=== PATIENT | male | born 1950 | race Caucasian/White ===

== ENCOUNTER → 2021-02-25 | Outpatient (CLI) | payer MEDICARE, OTHER ==
[2021-02-25 10:41] LABS: HCT 37.9 % (39.0-53.0); HGB 12.9 gm/dL (13.0-17.5); MCH 37.6 pg (25.0-35.0); MCHC 34.1 g/dL (31.0-37.0); MCV 110.4 fL (80.0-100.0); Macrocytosis Marked; Mean Platelet Volume 7.6; RBC 3.43 m/uL (4.30-5.90); RDW 13.1 % (11.5-15.5); WBC 4.2 k/uL (3.8-10.6)
[2021-02-25 11:16] LABS: Platelet Count 97 k/uL (150-450)
[2021-02-25 11:18] LABS: Eosinophils # (M) 0.13 k/uL (0-0.7); Lymphocytes # (M) 1.22 k/uL (1.0-4.8); Monocytes # (M) 0.46 k/uL (0-1.0); Neutrophils # (M) 2.39 k/uL (1.3-7.7); Neutrophils % (M) 57 %; Nucleated Red Blood Cells 0 /100 WBC (0-0); Total Cells Counted 100
[2021-02-25 17:19] LABS: African American GFR (CKD) 78.4 (60.0-200.0); Albumin 3.9 g/dL (3.80-4.90); Albumin/Globulin Ratio 1.44 (1.60-3.17); Anion Gap 9.1 mmol/L (4.00-12.00); BUN/Creat Ratio 15.45 Ratio (12.00-20.00); Calcium 9.8 mg/dL (8.7-10.3); Carbon Dioxide 22.9 mmol/L (21.6-31.8); Globulin 2.7 g/dL (1.6-3.3); Non-African American GFR(CKD) 67.7 (60.0-200.0); Potassium 4.2 mmol/L (3.5-5.5); Total Bilirubin 0.6 mg/dL (0.2-1.2); Total Protein 6.6 g/dL (6.2-8.2)
== END | disposition home or self-care (01) ==
LOC: LABMAIN 09:52
PROVIDERS: ATTEND Internal Medicine Gastroenterology
DX: K70.31 Alcoholic cirrhosis of liver with ascites (principal)
CPT/HCPCS: 36415; 80053; 82105; 85025

== ENCOUNTER 2024-12-20 10:43 | Day surgery (SDC) | payer MEDICARE, OTHER ==
[2024-12-16 12:21] VITALS: BMI 27.1
[2024-12-20] MEDS ORDERED: ONDANSETRON 4 MG/2 ML VIAL IVP PRN (11:27)
[2024-12-20 11:49] VITALS: TEMP 97.3
[2024-12-20] MEDS: LACTATED RINGERS 1,000 ML BAG IV STA (11:49)
[2024-12-20] MEDS: IV FLUID CONTINUATION 1,000 ML IV ONE (11:49)
[2024-12-20 11:55] LABS: Glucose,Whole Blood 162 mg/dL (70-110)
[2024-12-20] MEDS ORDERED: PROPOFOL 10 MG/ML 20 ML VIAL IV ONE (12:34)
--- NOTE | 2024-12-20 12:41 | P.PCN ---
Date of Procedure: 12/20/24 Procedure(s) Performed: BRIEF HISTORY: Patient is a 74-year-old, pleasant, white male seen for an of endoscopy as part of screening for esophageal varices. He was diagnosed with alcoholic liver cirrhosis 5 years ago. Last EGD 3 years ago revealed small distal esophageal varices.. PROCEDURE PERFORMED: Esophagogastroduodenoscopy. PREOPERATIVE DIAGNOSIS: History of liver cirrhosis screening for esophageal varices. IV sedation per anesthesia. PROCEDURE: After informed consent was obtained, the patient was brought into the endoscopy unit. IV sedation was administered by Anesthesia under continuous monitoring. Initially the Olympus GIF-140 video endoscope was inserted into the mouth. Esophagus intubated without any difficulty. It was gradually advanced into the stomach and duodenum and carefully examined. The bulb and the second part of the duodenum appeared normal. The scope at this time was withdrawn to the stomach, adequately insufflated with air, and upon careful examination, mucosa of the antrum, body, cardia and the fundus had moderate severe gastritis consistent with portal hypertensive gastropathy. The scope was then withdrawn into the esophagus. The GE junction was located at 39 cm from the incisors. The esophagus appeared normal. There is a moderate to large mid/distal esophageal varices identified with no red alice pineda seen. Proximal esophagus appeared normal and the patient tolerated the procedure well. IMPRESSION: 1. Moderate large mid and distal esophageal varices with no red alice pineda. 2. Moderate to severe portal hypertensive gastropathy 3. No evidence of gastric varices. RECOMMENDATIONS: The findings of this examination were discussed with the pat ient as well as his family. He will be started on nonselective beta-barbara as a part of primary prevention of esophageal variceal bleeding. Follow-up in office in 2 weeks..
[2024-12-20 12:56] VITALS: RESP 16
[2024-12-20 13:08] VITALS: BP 112/75; PULSE 75
== END 2024-12-20 13:18 | disposition home or self-care (01) ==
LOC: ORWHC2ENDO 10:43
PROVIDERS: ATTEND Internal Medicine Gastroenterology
DX: K76.6 Portal hypertension (principal); K70.30 Alcoholic cirrhosis of liver without ascites; K31.89 Other diseases of stomach and duodenum; I10 Essential (primary) hypertension; E78.5 Hyperlipidemia, unspecified; I48.91 Unspecified atrial fibrillation; E11.9 Type 2 diabetes mellitus without complications; Z87.891 Personal history of nicotine dependence; Z79.84 Long term (current) use of oral hypoglycemic drugs; Z79.899 Other long term (current) drug therapy; Z90.49 Acquired absence of other specified parts of digestive tract
CPT/HCPCS: 43235; J2704